=== PATIENT | male | born 1945 | race American Indian/Alaskan Native ===

== ENCOUNTER 2017-02-22 13:59 | Emergency (ER) | payer MEDICARE ==
--- NOTE | 2017-02-22 16:26 | Emergency Department Report ---
ED Fall HPI - General Chief Complaint: Fall Stated Complaint: BODY PAIN Time Seen by Provider: 02/22/17 15:28 Source: patient, EMS, RN notes reviewed Mode of arrival: Stretcher Limitations: No Limitations - History of Present Illness Initial Comments: 71-year-old male presents to the emergency department via EMS after reported fall from bed. Patient is bedbound at baseline. Reportedly, the patient was found lying on the floor. Patient states he did hit his head, but there was no loss of consciousness. Patient is complaining of generalized pain, which reportedly is his baseline. There are no other complaints. MD Complaint: fall -: Sudden, This morning Fall From: out of bed When Fall Occurred: unsure Fall Witnessed: no Place Fall Occurred: home Loss of Consciousness: none Prolonged Down Time?: no Symptoms Prior to Fall: none Severity: mild - Related Data Home Medications Medication Instructions Recorded Confirmed Last Taken Baclofen [Lioresal] 20 mg PO TID 12/16/13 11/05/14 11/05/14 Brimonidine Tartrate [Brimonidine 1 drop INTRAOCULA Q8HR 12/16/13 11/05/1411/05 Tartrate 0.2%] Calcium Carb & Citrate/Vit D3 2 tab PO DAILY 12/17/13 11/05/14 11/05/14 [Calcium + Vitamin D3 Caplet] Dorzolamide HCl [Dorzolamide HCl 1 drop INTRAOCULA TID 12/17/13 11/05/14 2%] Multivitamin [Multi-Vitamin Daily] 1 tab PO DAILY 12/17/13 11/05/14 11/05/14 Previous Rx's Medication Instructions Recorded Last Taken Type Albuterol Sulfate [Proventil HFA] 1 - 2 puff IH Q4H PRN #1 hfa.aer.ad 01/13/14 Unknown Rx Lactose-Reduced Food [Ensure 237 ml PO TID #90 liquid 09/21/14 11/05/14 Rx Original] Oxybutynin Chloride [Oxybutynin 2.5 mg PO BID #60 tab.er.24 09/21/14 11/05/14 Rx Chloride ER] Terazosin HCl 5 mg PO HS #30 tab-cap 09/21/14 11/05/14 Rx Allergies Allergy/AdvReac Type Severity Reaction Status Date / Time No Known Allergies Allergy Verified 12/16/13 03:24 ED Review of Systems ROS: Stated complaint: BODY PAIN Other details as noted in HPI Comment: All other systems reviewed and negative Musculoskeletal: as per HPI (generalized pain) ED Past Medical Hx - Past Medical History Previous Medical History?: Yes Hx Kidney Stones: Yes Hx HIV: No Additional medical history: Multiple sclerosis, decubitus ulcer - Surgical History Past Surgical History?: No - Family History Family history: no significant - Social History Smoking Status: Former Smoker Substance Use Type: None - Medications Home Medications: Home Medications Medication Instructions Recorded Confirmed Last Taken Type Baclofen [Lioresal] 20 mg PO TID 12/16/13 11/05/14 11/05/14 History Brimonidine Tartrate [Brimonidine 1 drop INTRAOCULA Q8HR 12/16/13 11/05/1411/05 History Tartrate 0.2%] Calcium Carb & Citrate/Vit D3 2 tab PO DAILY 12/17/13 11/05/14 11/05/14 History [Calcium + Vitamin D3 Caplet] Dorzolamide HCl [Dorzolamide HCl 1 drop INTRAOCULA TID 12/17/13 11/05/14 History 2%] Multivitamin [Multi-Vitamin Daily] 1 tab PO DAILY 12/17/13 11/05/14 11/05/14 History Albuterol Sulfate [Proventil HFA] 1 - 2 puff IH Q4H PRN #1 hfa.aer.ad 01/13/14 11/05/14 Unknown Rx Lactose-Reduced Food [Ensure 237 ml PO TID #90 liquid 09/21/14 11/05/14 Rx Original] Oxybutynin Chloride [Oxybutynin 2.5 mg PO BID #60 tab.er.24 09/21/14 11/05/14 Rx Chloride ER] Terazosin HCl 5 mg PO HS #30 tab-cap 09/21/14 11/05/14 11/05/14 Rx ED Physical Exam - General Limitations: No Limitations General appearance: alert, in no apparent distress - Head Head exam: Present: atraumatic, normocephalic - Eye Eye exam: Present: normal appearance, PERRL, EOMI - ENT ENT exam: Present: normal exam, normal orophraynx, mucous membranes moist - Neck Neck exam: Present: normal inspection, full ROM. Absent: tenderness - Respiratory Respiratory exam: Present: normal lung sounds bilaterally. Absent: respiratory distress - Cardiovascular Cardiovascular Exam: Present: regular rate, normal rhythm, normal heart sounds - GI/Abdominal GI/Abdominal exam: Present: soft, normal bowel sounds. Absent: distended, tenderness - Extremities Exam Extremities exam: Present: normal inspection, full ROM. Absent: tenderness - Back Exam Back exam: Present: normal inspection, full ROM. Absent: tenderness - Neurological Exam Neurological exam: Present: alert, oriented X3. Absent: motor sensory deficit - Skin Skin exam: Present: warm, dry, intact ED Course Vital Signs 02/22/17 02/22/17 02/22/17 14:09 14:10 14:11 Temperature 97.8 F Pulse Rate 99 H Respiratory 20 Rate Blood Pressure 98/62 Blood Pressure 98/62 [Right] O2 Sat by Pulse 100 99 99 Oximetry 02/22/17 02/22/17 02/22/17 14:20 14:30 14:40 Temperature Pulse Rate 98 H 97 H 99 H Respiratory 20 23 23 Rate Blood Pressure 98/62 98/62 98/62 Blood Pressure [Right] O2 Sat by Pulse 99 100 98 Oximetry 02/22/17 02/22/17 02/22/17 14:50 15:00 15:11 Temperature Pulse Rate 96 H 94 H Respiratory 17 15 18 Rate Blood Pressure 98/62 96/57 Blood Pressure [Right] O2 Sat by Pulse 98 99 Oximetry ED Medical Decision Making - Radiology Data Radiology results: image reviewed interpreted by me: CT of the brain shows no acute intracranial abnormality. - Medical Decision Making Imaging results reviewed and discussed with the patient. Results were also discussed with the patient's daughter over the phone. Patient will be discharged home at this time to follow up with his primary care physician. - Differential Diagnosis contusion, fracture, SDH Critical care attestation.: If time is entered above; I have spent that time in minutes in the direct care of this critically ill patient, excluding procedure time. ED Disposition Clinical Impression: Scalp contusion Qualifiers: Encounter type: initial encounter Qualified Code(s): S00.03XA - Contusion of scalp, initial encounter Disposition: DISCHARGED TO HOME OR SELFCARE Is pt being admited?: No Condition: Stable Instructions: Contusion in Adults (ED) Referrals: PRIMARY CARE, [Primary Care Provider] - 3-5 Days Time of Disposition: 17:52
--- NOTE | 2017-02-22 17:00 | Cat Scan Report ---
FINAL REPORT EXAM: CT HEAD/BRAIN WO CON HISTORY: fall from bed TECHNIQUE: CT of the Head without IV contrast. PRIORS: None currently available. FINDINGS: Decreased attenuation regions in the periventricular and subcortical white matter are nonspecific and may represent small vessel ischemic disease or a demyelinating process. Small vessel ischemic disease is more likely. Vascular calcifications noted. There is no evidence for acute ischemia. There is no hemorrhage. There is no midline shift. There is no hydrocephalus. There is no mass. Age appropriate owen-white matter attenuation is noted. There is no calvarial fracture. The temporal bones demonstrate aerated mastoid air cells. The middle ears appear unremarkable. Mild mucosal thickening in both ethmoid sinuses. Globes are intact. IMPRESSION: No acute intracranial findings. Chronic ischemic disease.
[2017-02-22 18:01] VITALS: BP 100/62
== END 2017-02-22 19:40 | disposition home or self-care (01) ==
LOC: ED 13:59
DX: S00.03XA Contusion of scalp, initial encounter (principal); G35 Multiple sclerosis; Z87.891 Personal history of nicotine dependence; W06.XXXA Fall from bed, initial encounter; Y93.89 Activity, other specified; Y99.8 Other external cause status; Y92.89 Other specified places as the place of occurrence of the external cause
CPT/HCPCS: 70450

== ENCOUNTER 2017-06-09 21:52 | Inpatient (IN) | payer MEDICARE ==
[2017-06-09] MEDS ORDERED: NACL 0.9% 1000 ML 1,000 ML ONE (22:13)
[2017-06-09] MEDS ORDERED: NACL 0.9% 1000 ML 1,000 ML IV ONE ×2 (22:19→23:31)
--- NOTE | 2017-06-09 23:16 | Emergency Department Report ---
HPI - General Chief Complaint: Altered Mental Status Time Seen by Provider: 06/09/17 22:13 - HPI HPI: Room 23 The patient is a 72-year-old male sent from long term for altered mental status. Family reports patient has been acting different and has had cloudy urine since yesterday. The patient is lethargic and does not respond verbally to questions. Patient is unable to provide a history. Patient presents hypotensive and tachycardic from EMS Location: [see above] Duration: [see above] Quality: "Different" Severity: Moderate Modifying factors: [see above] Context: [see above] Mode of transportation: [not driving] ED Past Medical Hx - Past Medical History Previous Medical History?: Yes Hx Kidney Stones: Yes Hx Dementia: Yes Additional medical history: Multiple sclerosis, decubitus ulcer - Surgical History Past Surgical History?: No - Family History Family history: no significant - Social History Smoking Status: Unknown if ever smoked Substance Use Type: None - Medications Home Medications: Home Medications Medication Instructions Recorded Confirmed Last Taken Type Baclofen [Lioresal] 20 mg PO TID 12/16/13 06/10/17 11/05/14 History Brimonidine Tartrate [Brimonidine 1 drop INTRAOCULA Q8HR 12/16/13 06/10/1711/05 History Tartrate 0.2%] Calcium Carb & Citrate/Vit D3 2 tab PO DAILY 12/17/13 06/10/17 11/05/14 History [Calcium + Vitamin D3 Caplet] Dorzolamide HCl [Dorzolamide HCl 1 drop INTRAOCULA TID 12/17/13 06/10/17 History 2%] Multivitamin [Multi-Vitamin Daily] 1 tab PO DAILY 12/17/13 06/10/17 11/05/14 History Albuterol Sulfate [Proventil HFA] 1 - 2 puff IH Q4H PRN #1 hfa.aer.ad 01/13/14 06/10/17 Unknown Rx Lactose-Reduced Food [Ensure 237 ml PO TID #90 liquid 09/21/14 06/10/17 Rx Original] Oxybutynin Chloride [Oxybutynin 2.5 mg PO BID #60 tab.er.24 12/11/14 08/30/17 01 /25/15 Rx Chloride ER] Terazosin HCl 5 mg PO HS #30 tab-cap 09/21/14 06/10/17 11/05/14 Rx Cephalexin [Keflex] 500 mg PO Q12HR #10 cap 04/13/17 06/10/17 Unknown Rx oxyCODONE /ACETAMINOPHEN [Percocet 1 tab PO Q6H PRN #30 tablet 04/13/17 Unknown Rx 5/325 mg] ED Review of Systems ROS: Stated complaint: AMS Other details as noted in HPI Comment: Unobtainable due to pts medical conditions Physical Exam - Physical Exam Vital Signs: Vital Signs 06/09/17 06/09/17 06/09/17 22:13 22:26 22:51 Temperature 99.8 F H Pulse Rate 156 H 157 H 136 H Respiratory 41 H 40 H 35 H Rate Blood Pressure 60/29 95/47 O2 Sat by Pulse 91 91 99 Oximetry Physical Exam: GENERAL: The patient is a adult male. Thin and cachectic on the stretcher. Patient is tachycardic and hypotensive and does not respond verbally HEENT: Normocephalic. Atraumatic. NECK: Trachea midline CHEST/LUNGS: Clear to auscultation. There is no respiratory distress noted. HEART/CARDIOVASCULAR: Regular. There is tachycardia. There is no gallop rub or murmur. ABDOMEN: Abdomen is soft, nontender. Patient has normal bowel sounds. There is no abdominal distention. SKIN: There is no diaphoresis. NEURO: The patient is lethargic. The patient is cooperative. MUSCULOSKELETAL: The patient appears to have contractures of bilateral lower extremities. There is no evidence of acute injury. ED Course Vital Signs 06/09/17 06/09/17 06/09/17 22:13 22:26 22:51 Temperature 99.8 F H Pulse Rate 156 H 157 H 136 H Respiratory 41 H 40 H 35 H Rate Blood Pressure 60/29 95/47 O2 Sat by Pulse 91 91 99 Oximetry ED Medical Decision Making - Lab Data Result diagrams: 06/09/17 23:40 06/09/17 23:40 Laboratory Tests 06/09/17 06/09/17 06/09/17 23:40 23:40 23:40 WBC 14.4 H RBC 3.53 L Hgb 9.1 L Hct 30.8 L MCV 87 MCH 26 L MCHC 30 L RDW 14.8 Plt Count 539 H Lymph % (Auto) 7.0 L Arroyo % (Auto) 5.7 Eos % (Auto) 0.0 Baso % (Auto) 0.1 Lymph # 1.0 L Arroyo # 0.8 Eos # 0.0 Baso # 0.0 Seg Neutrophils % 87.2 H Seg Neutrophils # 12.5 H PT 16.5 H INR 1.34 H APTT 36.1 Sodium 144 Potassium 5.1 H Chloride 101.7 Carbon Dioxide 23 Anion Gap 24 BUN 35 H Creatinine 1.5 Estimated GFR 56 BUN/Creatinine Ratio 23.33 Glucose 136 H Lactic Acid Calcium 9.9 Total Bilirubin 0.40 AST 19 ALT 13 Alkaline Phosphatase 90 Total Creatine Kinase 62 CK-MB (CK-2) 3.1 CK-MB (CK-2) Rel Index 5.0 H Troponin T 0.195 H* Total Protein 7.9 Albumin 2.2 L Albumin/Globulin Ratio 0.4 TSH Free T4 Urine Color Urine Turbidity Urine pH Ur Specific Watson Urine Protein Urine Glucose (UA) Urine Ketones Urine Blood Urine Nitrite Urine Bilirubin Urine Urobilinogen Ur Leukocyte Esterase Urine WBC (Auto) Urine RBC (Auto) U Epithel Cells (Auto) Urine Bacteria (Auto) Urine WBC Clumps Urine Mucus 06/09/17 06/09/17 06/10/17 23:40 23:40 01:24 WBC RBC Hgb Hct MCV MCH MCHC RDW Plt Count Lymph % (Auto) Arroyo % (Auto) Eos % (Auto) Baso % (Auto) Lymph # Arroyo # Eos # Baso # Seg Neutrophils % Seg Neutrophils # PT INR APTT Sodium Potassium Chloride Carbon Dioxide Anion Gap BUN Creatinine Estimated GFR BUN/Creatinine Ratio Glucose Lactic Acid 5.30 H* Calcium Total Bilirubin AST ALT Alkaline Phosphatase Total Creatine Kinase CK-MB (CK-2) CK-MB (CK-2) Rel Index Troponin T Total Protein Albumin Albumin/Globulin Ratio TSH 7.060 H Free T4 1.29 Urine Color Radha Urine Turbidity Cloudy Urine pH 6.0 Ur Specific Watson 1.017 Urine Protein 100 mg/dl Urine Glucose (UA) Neg Urine Ketones Neg Urine Blood Mod Urine Nitrite Neg Urine Bilirubin Neg Urine Urobilinogen 2.0 Ur Leukocyte Esterase Lg Urine WBC (Auto) 93.0 H Urine RBC (Auto) 4.0 U Epithel Cells (Auto) < 1.0 Urine Bacteria (Auto) 3+ Urine WBC Clumps 2+ Urine Mucus 2+ - EKG Data -: EKG Interpreted by Me EKG shows normal: sinus rhythm Rate: tachycardia (156 bpm) - EKG Data When compared to previous EKG there are: changes noted Interpretation: nonspecific ST-T wave cuco - Radiology Data Radiology results: report reviewed (CT head, CT chest), image reviewed (CT head , CT chest, chest x-ray) interpreted by me: Chest [id number] line in place. No pneumothorax, no focal infiltrates CT head (read by radiologist) (-no evidence of acute intracranial process CT chest (rubber radiologist)-no evidence of pulmonary arterial emboli. COPD with mild fibrosis. Scattered infiltrates bilateral lower lungs. Mild atelectasis bilateral lower lungs. Fluid-filled distended esophagus in the thorax. Tapering of the esophageal lumen in the distal thorax is suspected. The patient should have further workup for achalasia - Differential Diagnosis sepsis, UTI, pneumonia Critical Care Time: Yes Critical care time in (mins) excluding proc time.: 30 Critical care attestation.: If time is entered above; I have spent that time in minutes in the direct care of this critically ill patient, excluding procedure time. ED Disposition Clinical Impression: Urinary tract infection, Leukocytosis, Sepsis, Pneumonia Disposition: DC-[id number] OP ADMIT IP TO THIS HOSP Is pt being admited?: Yes Does the pt Need Aspirin: Yes Condition: Serious Instructions: Bacterial Pneumonia (ED) Referrals: PRIMARY CARE, [Primary Care Provider] - 3-5 Days Time of Disposition: 03:36 (hospitalist notified) Blank Doc - Documentation Documentation: Central line note Consent was unobtainable Location: Right internal jugular The site was prepped and draped in a sterile fashion Site was anesthetized with lidocaine 1% approximately 3 mL Landmarks identified and needle introduced until return of dark nonpulsatile blood Blood was obtained on second attempt Guidewire introduced using Seldinger technique and triple lumen catheter placed over guidewire There was blood return from all 3 ports Catheter was secured to patient by suture The patient tolerated procedure well The post procedure x-ray was ordered There were no complications
[2017-06-10 00:24] LABS: Basophils % (Auto) 0.1 % (0.0-1.8); Mean Corpuscular HGB Conc 30 % (32-34); Mean Corpuscular Volume 87 fl (84-94); Platelet Count 539 K/mm3 (140-440); Red Blood Count 3.53 M/mm3 (3.65-5.03); Red Cell Distribution Width 14.8 % (13.2-15.2); White Blood Count 14.4 K/mm3 (4.5-11.0)
[2017-06-10 00:34] LABS: Hematocrit 30.8 % (35.5-45.6); Hemoglobin 9.1 gm/dl (11.8-15.2); INR 1.34 (0.87-1.13); Mean Corpuscular Hemoglobin 26 pg (28-32); Partial Thromboplastin Time 36.1 Sec. (24.2-36.6)
[2017-06-10 00:35] LABS: Creatine Kinase MB 3.1 ng/mL (0.0-4.0)
[2017-06-10 00:39] LABS: Albumin 2.2 g/dL (3.9-5); Albumin/Globulin Ratio 0.4 %; BUN/Creatinine Ratio 23.33; Bilirubin,Total 0.4 mg/dL (0.1-1.2); Calcium 9.9 mg/dL (8.4-10.2); Chloride 101.7 mmol/L (98-107); Potassium 5.1 mmol/L (3.6-5.0); Total Protein 7.9 g/dL (6.3-8.2)
[2017-06-10] MEDS ORDERED: NACL 0.9% 1000 ML 1,000 ML IV ONE (00:39)
[2017-06-10 01:43] LABS: Bacteria,Urine 3+ /HPF (Negative); Bilirubin,Urine NEG (Negative); Blood,Urine MOD (Negative); Ketones,Urine NEG (Negative); Leukocyte Esterase,Urine LG (Negative); Mucus,Urine 2+ /HPF; Nitrite,Urine NEG (Negative)
[2017-06-10] MEDS: LEVAQUIN 750MG/150ML 750 MG/150 ML BAG IV ONE ×2 (02:30→03:00)
[2017-06-10] MEDS ORDERED: NACL ONE (02:37)
--- NOTE | 2017-06-10 03:27 | Cat Scan Report ---
FINAL REPORT PROCEDURE: CT HEAD/BRAIN WO CON TECHNIQUE: Computerized tomography of the head was performed without contrast material. HISTORY: altered mental status COMPARISON: 02/22/2017 FINDINGS: Skull and scalp: Normal. Paranasal sinuses: Normal. Ventricles and subarachnoid spaces: Normal. Cerebrum: There is no evidence of an acute intracranial hemorrhage, hematoma, infarction, midline displacement or mass. Significant atrophy and periventricular deep white matter changes are noted.. Cerebellum and brainstem: No evidence of hemorrhage, acute infarction or mass. Vasculature: Normal. Comments: None. IMPRESSION: There is no evidence of an acute intracranial process. Significant atrophy and periventricular deep white matter changes are noted.
--- NOTE | 2017-06-10 03:37 | Cat Scan Report ---
FINAL REPORT PROCEDURE: CT ANGIO CHEST TECHNIQUE: Computerized tomographic angiography of the chest was performed after the IV injection of iodinated nonionic contrast including image processing. The image data was postprocessed using 2-dimensional multiplanar reformatted (MPR) and 3-dimensional (MIP and/or volume rendered) techniques. HISTORY: hypoxia, tachycardia COMPARISON: 01/13/2014 FINDINGS: Heart and pericardium: Normal. Thoracic aorta: Normal. Pulmonary vasculature: Normal. Lymph nodes: No enlarged thoracic lymph nodes. Lungs: Chronic obstructive pulmonary changes are identified. Underlying fibrosis is noted. Scattered infiltrates in the lower lungs are noted. Mild atelectasis bilateral lower lungs. The central airway appears patent.. Pleural space: No effusion, thickening, or pneumothorax. Musculoskeletal structures: No significant abnormality. Upper abdominal structures: There is significant distention of the esophagus. Fluid in the esophagus is identified up to the thoracic inlet. Tapering of the lumen caliber of the distal thoracic aorta is noted. The patient should have further workup for achalasia.. IMPRESSION: No evidence of pulmonary arterial emboli. COPD with mild fibrosis. Scattered infiltrates bilateral lower lungs. Mild atelectasis bilateral lower lungs. Fluid-filled distended esophagus in the thorax. Tapering of the esophageal lumen in the distal thorax is suspected. The patient should have further workup for achalasia.
--- NOTE | 2017-06-10 04:44 | Admit Criteria Form ---
Admission Criteria Documentation: PNEUMONIA, COMMUNITY ACQUIRED Clinical Indications for Admission to Inpatient Care (Place ' X' for any and all applicable criteria): Admission to inpatient status for two midnights or more is indicated for ANY ONE of the following (1)(2)(3): [ ]I. Hypoxia [ ]II. Hemodynamic instability [ ]III. Altered mental status that is severe or persistent [ ]IV. Dehydration that is severe or persistent. [ ]V. Bacteremia [ ]. Moderate-risk or high-risk category patients (Pneumonia Severity Index ( PSI) class IV or V, or CURB-65 score of 3 or greater). [ ]VII. Intermediate-risk category patients (e.g., PSI class III or CURB-65 score 2) who do not improve with outpatient and observation care treatment [ ]VIII. Outpatient treatment failure as indicated by 1 or more of the following(9): [ ]a) Failure to respond to antibiotic (eg, resistant organism) [ ]b) Clinically significant adverse effects from medication (eg, vomiting) [ ]c) Complications of pneumonia (eg, empyema, bacteremia) [ ]d) Significant worsening of comorbid cond necessitating inpatient care (eg, chronic heart failure) [ X]IX. Appropriate diagnostic testing and treatment unavailable in outpatient or recovery facility (eg, testing or infection control measures unavailable) [ ]X. Respiratory finding (eg. tachypnea) that do not respond to outpatient observation care treatment [ ]XI. Complicated pleural effusions (eg, emphysema, exudative, loculated) [ ]XII. Immunocompromised patients (e.g., AIDS, chronic steroid use) at moderate or high risk based on clinical evaluation. Extended stay beyond goal length of stay may be needed for (20) [ ]a) Unclear diagnosis [ ]b) Pleural disease [ ]c) Severe pneumonia or treatment failure [ ]d) Respiratory failure [ ]e) New onset hyponatremia (serum Na concentration less than 135 mEq/L(mmol/ L) [ ]f) Clinically significant comorbid illness (eg, heart failure, atrial fibrillation with rapid heart rate, alcohol withdrawal, renal insufficiency)(34)(35) [ ]g) Comorbid acute exacerbation of COPD(36) [ ]h) Concomitant diagnosis of malignancy [ ]i) Concomitant altered mental status [ ]j) Culture-identified Gram-negative or antibiotic-resistant organism (eg, Pseudomonas, methicillin-resistant Staphylococcus aureus MRSA)(30) [ ]k) Healthcare-associated pneumonia (36) The original [facility] [employer] content created by [facility] has been revised. The portions of the content which have been revised are identified through the use of italic text or in bold, and [facility] has neither reviewed nor approved the modified material. All other unmodified content is copyright [facility]. Please see references footnoted in the original [facility] edition 2016 Admission Criteria Met: Yes
[2017-06-10] MEDS ORDERED: TYLENOL PO PRN (04:46)
[2017-06-10] MEDS ORDERED: ZOFRAN IV PRN (04:46)
[2017-06-10] MEDS ORDERED: LEVOPHED DRIP 4 MG/NS 250 ML 4 MG/250 ML BAG IV ONE ×2 (04:51→08:15)
[2017-06-10] MEDS ORDERED: NACL 0.9% 1000 ML 1,000 ML IV SCH (05:00)
[2017-06-10] MEDS ORDERED: TYLENOL PR PRN (05:08)
[2017-06-10] MEDS: LEVOPHED DRIP 4 MG/NS 250 ML 4 MG/250 ML BAG IV SCH ×4 (05:15→15:00)
[2017-06-10] MEDS ORDERED: ZOSYN/NS 3.375GM/50ML 50 ML IV SCH (06:00)
[2017-06-10] MEDS ORDERED: NACL 0.9% 1000 ML 1,000 ML ONE (06:30)
[2017-06-10] MEDS: ZOSYN/NS 2.25 GM/50ML 2.25 GM/50 ML BAG IV SCH ×2 (06:50→12:30)
--- NOTE | 2017-06-10 07:41 | History and Physical Report ---
CHIEF COMPLAINT: Change in mental status. HISTORY OF PRESENT ILLNESS: The patient is a 72-year-old male brought from the snf because of altered mental status. Family noted that the patient has been acting differently and strange, and also they said that they noticed that the urine was cloudy since yesterday. The patient according to the family was noted to be lethargic and does not respond well to questions. The patient is unable to provide information. There was no history of fever or chills. No history of chest pain and there is no history of nausea or vomiting; however, the EMS reported rapid heartbeat. PAST MEDICAL HISTORY: Pertinent for dementia, multiple sclerosis, decubitus ulcer, and kidney stones. PAST SURGICAL HISTORY: Unremarkable. FAMILY HISTORY: Noncontributory. SOCIAL HISTORY: The patient stays at a snf, does not drink, does not smoke and does not use illicit drugs. MEDICATIONS: The patient is on baclofen 20 mg by mouth twice daily, brimonidine tartrate one drop intraocular every 8 hours, calcium carbonate and calcium citrate/vitamin D two tablets by mouth daily, dorzolamide 1 drop intraocular 3 times daily, multivitamin 1 tablet by mouth daily, albuterol sulfate, Proventil 1-2 puffs by inhalation every 4 hours as needed for shortness of breath. The patient is also on lactose reduced food with Ensure Original 237 mL by mouth 3 times daily, oxybutynin 2.5 mg by mouth twice daily, terazosin 5 mg by mouth at bedtime, cephalexin or Keflex 500 mg by mouth twice daily, and Percocet 5/325 mg 1 by mouth every 6 hours. ALLERGIES: There are no known drug allergies. REVIEW OF SYSTEMS: CONSTITUTIONAL: There is no fever, no chills, no diaphoresis. HEENT: There is no headache or sore throat. CARDIOVASCULAR SYSTEM: There is no chest pain or orthopnea. RESPIRATORY SYSTEM: There is no shortness of breath or cough. GASTROINTESTINAL SYSTEM: There is no nausea, no vomiting, no abdominal pain, diarrhea or constipation. NEUROLOGICAL SYSTEM: There is no numbness. No dizziness. Altered mental status present. MUSCULOSKELETAL SYSTEM: There is no joint pain or swelling. DERMATOLOGICAL SYSTEM: There is no skin rash. The patient is known to have decubitus ulcer. GENITOURINARY SYSTEM: There is no dysuria, hematuria, or flank pain. The patient's urine was reported by the family as being dark yellow. Rest of system review is normal. PHYSICAL EXAMINATION: GENERAL: At the time of exam, the patient was found to be alert, confused and not in acute distress. VITAL SIGNS: Show temperature of 98.3 degrees Fahrenheit, pulse of 127, respirations 26, blood pressure 114/67, O2 sat of 96% on room air. HEENT: Exam shows pupils to be equal, round, reactive to light and accommodation. Extraocular muscles are intact. NECK: Supple with no JVD or carotid bruit. CARDIOVASCULAR SYSTEM: Shows first and second heart sounds with a rapid rate, but no gallops or murmurs. RESPIRATORY SYSTEM: Shows good air entry on both sides of the lung with no abnormal breath sounds. GASTROINTESTINAL SYSTEM: Shows abdomen to be full, soft, nontender with no organomegaly or rigidity. NEUROLOGIC: Neuro exam shows no focal deficit. MUSCULOSKELETAL SYSTEM: Shows no joint swelling or tenderness. DERMATOLOGICAL SYSTEM: Shows different areas of decubitus ulcer of back area. GENITOURINARY SYSTEM: Shows no costovertebral angle tenderness. PERTINENT LABORATORY DATA AND IMAGING STUDIES: The patient had a CT angiogram of the chest done that shows no pulmonary embolism; however, there is finding of COPD with mild fibrosis. There is also a finding of scattered infiltrates bilaterally in the lower lungs and there is finding of fluid-filled distended esophagus in the thorax, which is noted to have tapered in the distal thorax and there is suspicion of possible achalasia. Also the patient had a CT of the head without contrast done that shows no evidence of acute intracranial process. There is significant atrophy and periventricular deep white matter changes. The patient's lab results shows elevated white count of 14,400 with low hemoglobin of 9.1, low hematocrit of 30.8 with normal MCV, platelet level was slightly elevated with a value of 539. CBC differential shows elevated segmented neutrophils of 87.2% with no significant bands. The patient coagulations studies show a slightly elevated INR of 1.34 with high PT of 16.8, and the patient is not on Coumadin. The patient's chemistry shows normal sodium with slightly elevated potassium level of 5.1 with normal level being 3.6-5.0. The patient's lactic acid level is high with a value of 5.3. The patient's cardiac enzyme shows normal total CPK, normal CK-MB with elevated percentage index of 5.0, high troponin level of 0.195, albumin level is low with a value of 2.2. The patient's TSH level is high with a value of 7.0 and free T4 is normal suggestive of subclinical hypothyroidism. The patient's urinalysis show high urine WBC of 93 with large leukocyte esterase and negative nitrate. DIAGNOSES: 1. Sepsis. 2. Urinary tract infection. 3. Altered mental status. 4. Tachycardia. 5. Elevated troponin level. PLAN: The patient will be admitted to ICU because of low blood pressure and Levophed that was just titrated. The patient will have cardiac enzymes checked every 6 hours x 2 more levels. The patient will continue on IV Levophed to keep mean arterial blood pressure at 65. The patient will remain n.p.o. until swallow studies and will be on IV Zosyn 3.375 g every 6 hours. The patient will also be on IV normal saline at 125 mL an hour and will be on IV Zofran 4 mg every 8 hours as needed for nausea and vomiting. The patient will be on Tylenol 650 mg rectally every 4 hours for fever and headache. The patient will have a consult with critical care doctor, Dr. Ramirez for ICU admission. DVT prophylaxis will be through heparin 5000 units subcutaneous every 12 hours. The patient's home medications will be reconciled and applied. JOB# [id number] OCN/NTS
[2017-06-10 08:13] LABS: ISTAT Base Excess -7; ISTAT HCO3 18.8; ISTAT PCO2 37.8 (35-45); ISTAT PH 7.306 (7.35-7.45); ISTAT PO2 74 (80-105); ISTAT SO2 93; ISTAT TCO2 20
[2017-06-10] MEDS ORDERED: HEPARIN SUB-Q SCH (10:00)
[2017-06-10 10:02] LABS: Creatine Kinase MB 9.6 ng/mL (0.0-4.0)
--- NOTE | 2017-06-10 10:54 | Admit Criteria Form ---
Admission Criteria Documentation: SEVERE SEPSIS Clinical Indications for Admission to Inpatient Care (Place 'X' for any and all applicable criteria): Hospital admission is needed for appropriate care of the patient because of ANY ONE of the following: [X]I. Hemodynamic instability indicated by ANY ONE of the following(1)(2)(3)( 4)(5): [X]a. Vital sign abnormality not readily corrected by appropriate treatment within 12 to 24 hours indicated by ANY ONE of the following: []i) Tachycardia that persists despite appropriate treatment [X]ii) Hypotension that persists despite appropriate treatment []iii) Orthostatic vital sign changes that persist despite appropriate treatment [X]b. Vital sign abnormality that is severe indicated by ANY ONE of the following: [X]i. Inadequate perfusion indicated by ANY ONE of the following: [X]1) Lactic acidosis (greater than 2 mmol/L) []2) New abnormal capillary refill (greater than 3 seconds) []3) Reduced urine output []4) New altered mental status []5) Myocardial Ischemia []ii. Mean arterial pressure [A] less than 60 mm Hg []iii. Mean arterial pressure[A] less than 70 mm Hg after 30 minutes of appropriate treatment (eg, fluid resuscitation) []iv. Sustained heart rate greater than 120 beats per minute in adult []v. IV inotropic or vasopressor medication required to maintain adequate blood pressure or perfusion [X]II. Systemic or infectious condition causing severe symptoms or findings not responsive to emergency or observation care treatment (as appropriate) indicated by ANY ONE of the following: []a. Cardiac arrhythmias of immediate concern(1)(2)(3) []b. Severe endocrine disorder (eg, thyrotoxicosis, adrenal insufficiency)(4)(5) []c. Seizures (eg, new or recurrent)(6) []d. New-onset end organ failure or dysfunction as indicated by ANY ONE of the following: []i. Acute unexplained hypoxemia (eg, not from lung infection or chronic disease)(7)(8)(9) []ii. Acute renal failure as indicated by new onset of ANY ONE of the following(10)(11)(12)(13)(14): []1) 3-fold rise in serum creatinine from baseline []2) Serum creatinine greater than 4 mg/dL (354 micromoles/L) with acute rise greater than 0.5 mg/dL (44.2 micromoles/L) []3) Reduction of more than 75% in estimated glomerular filtration rate from baseline. []4) Estimated glomerular filtration rate less than 35 mL/min/1.73m2 ( 0.59 mL/sec/1.73m2) in child younger than 18 years. []5) Cessation of urine output indicated by ALL of the following: []A. Adequate volume status []B. Inadequate urine output as indicated by ANY ONE of the following: []a. Urine output less than 0.3 mL/kg/hr for 24 hours []b. Anuria (urine output less than 0.1 mL/kg/hr) for 12 hours []iii. Acute mental status changes(15) []iv. Acute hepatic failure (eg, plasma bilirubin greater than 4 mg/ dL (68 micromoles/L), new INR greater than 2.0)(16)(17) []e. Unmanageable nausea and vomiting(18) []f. New-onset or uncontrolled central diabetes insipidus(19)(20) []g. Clinically significant dehydration(18)(21) []h. Hypoglycemia(22) [X]i. Acidosis (pH less than 7.35) or alkalosis (pH greater than 7.45)( 22)(23) []j. Toxic drug level that indicates need for specific monitoring or treatment(24)(25) []k. Severe electrolyte abnormalities indicated by ALL of the following( 1)(2)(3): []i. Electrolytes and associated findings are not as expected for patient baseline or acceptable treatment effects. []ii. Severe abnormalities indicated by ANY ONE of the following: []1) Sodium less than 130 mEq/L (mmol/L) (new) []2) Sodium less than 135 mEq/L (mmol/L) with ANY ONE of the following: []A. Uncorrectable (to near normal or chronic baseline) after trial of outpatient and emergency treatment []B. Altered mental status []C. Seizures []D. Severe medical etiology requiring inpatient management (eg , heart failure, hypovolemia) []3) Sodium greater than 155 mEq/L (mmol/L) []4) Sodium greater than 150 mEq/L (mmol/L) with ANY ONE of the following: []A. Uncorrectable (to near normal or chronic baseline) with outpatient and emergency treatment []B. Altered mental status []C. Seizures []D. Severe medical etiology (eg, hypovolemia, diabetes insipidus) []5) Potassium less than 2.5 mEq/L (mmol/L) despite outpatient and emergency treatment []6) Potassium less than 3 mEq/L (mmol/L) with ANY ONE of the following : []A. Weakness []B. Cardiac abnormality (eg, arrhythmia, conduction disturbance ) []C. Cardiac ischemia []D. Ileus []E. Ongoing medical cause requiring inpatient management (eg, acute renal wasting or SIADH) []F. Other severe symptoms []7) Potassium greater than 6.5 mEq/L (mmol/L) []8) Potassium greater than 5 mEq/L (mmol/L) with ANY ONE of the following: []A. Uncorrectable (to near normal or chronic baseline) with outpatient and emergency treatment []B. Severe ECG findings[A] []C. Acute worsening of renal failure (creatinine greater than 2.5 mg/dL (221 micromoles/L) or significant elevation for age and size) []D. Severe weakness []E. Severe medical etiology (eg, hemolysis, infection, drug overdose) []9) Calcium less than 7 mg/dL (1.75 mmol/L) despite outpatient and emergency treatment(5) []10) Calcium less than 8 mg/dL (2 mmol/L) with significant symptoms or findings (eg, altered mental status, muscle spasms, seizures, breathing difficulty, cardiac abnormality (eg, arrhythmia or conduction disturbance))(5) []11) Calcium greater than 14 mg/dL (3.5 mmol/L)(5) []12) Calcium greater than 12 mg/dL (3 mmol/L) with ANY ONE of the following(5): []A. Uncorrectable (to near normal or chronic baseline) with outpatient and emergency treatment []B. Significant dehydration or hypovolemia as indicated by ALL of the following(3)(6)(7): []a. Not resolved with initial treatments []b. Clinically significant dehydration as indicated by ANY ONE of the following: [](1) Vomiting refractory to outpatient treatment (ie, precluding oral rehydration) [](2) Inability to drink [](3) Hypernatremia or other electrolyte abnormality unable to be corrected with outpatient and emergency treatment [](4) Failure to remain hydrated with outpatient therapy [](5) Reduced urine output [](6) Hypotension [](7) Serious cause for dehydration requiring acute hospitalization ( eg, bowel obstruction, increased intracranial pressure, infectious cause) [](8) Child with ANY ONE of the following(8): [](i) Severe abdominal tenderness [](ii) Adequate care not available at home [](iii) Severe dehydration (greater than 9% loss of body weight) []C. Significant symptoms or findings (eg, altered mental status , cardiac abnormality (eg, arrhythmia, conduction disturbance), malignant etiology requiring inpatient treatment) []13) Phosphorus less than 1 mg/dL (0.32 mmol/L) []14) Phosphorus less than 1.5 mg/dL (0.48 mmol/L) with ANY ONE of the following: []A. Patient unresponsive to outpatient and emergency treatment []B. Significant symptoms or findings (eg, weakness, altered mental status, breathing difficulty, seizures, rhabdomyolysis) []15) Phosphorus greater than 10 mg/dL (3.2 mmol/L) []16) Phosphorus greater than 4.5 mg/dL (1.45 mmol/L) (new) with ANY ONE of the following: []A. Severe medical etiology (eg, crush injury, acute renal failure) []B. Associated hypocalcemia with significant findings (eg, neurologic symptoms, altered mental status, muscle spasms, seizures, breathing difficulty, cardiac abnormality (eg, arrhythmia, conduction disturbance)) []16) Magnesium less than 1 mg/dL (0.41 mmol/L) []17) Magnesium less than 1.5 mg/dL (0.62 mmol/L) with ANY ONE of the following: []A. Patient unresponsive to outpatient and emergency treatment []B. Associated hypocalcemia with significant findings (eg, altered mental status, muscle spasms, seizures, breathing difficulty, cardiac abnormality (eg, arrhythmia, conduction disturbance)) []C. Associated hypokalemia (potassium less than 3 mEq/L (mmol/L )) with risk of arrhythmia []18) Magnesium greater than 4 mEq/L (2 mmol/L) []19) Magnesium greater than 2.5 mEq/L (1.25 mmol/L) with significant symptoms or findings (eg, weakness, altered mental status, cardiac abnormality (eg, arrhythmia, conduction disturbance), breathing difficulty, severe medical etiology (eg, renal failure, hypovolemia)) []20) Uric acid greater than 20 mg/dL (1190 micromoles/L)(9) []21) Uric acid greater than 8 mg/dL (476 micromoles/L) with significant symptoms or findings of tumor lysis syndrome (eg, creatinine greater than 1.5 times upper limit of normal, cardiac abnormality (eg , arrhythmia, conduction disturbance), seizure)(9) []III. High fever or other high-risk infection situation as indicated by ANY ONE of the following(26)(27)(28): []a. Outpatient and observation care antimicrobial treatment unavailable, not effective, or not appropriate []b. Documented bacteremia []c. Temperature greater than 104.9 degrees F (40.5 degrees C) (oral) []d. Temperature greater than 103.1 degrees F (39.5 degrees C) (oral) or less than 96.8 degrees F (36 degrees C) (rectal) that does not respond to emergency treatment and observation care []IV. High-risk febrile neutropenia[A] as indicated by ANY ONE of the following(29)(30)(31)(32): []a. Profound neutropenia[B] anticipated to extend for more than 7 days []b. Hemodynamic instability []c. Hypoxemia []d. Tachypnea []e. Altered mental status []f. New-onset abdominal pain []g. New-onset vomiting or diarrhea []h. Oral or gastrointestinal mucositis that interferes with swallowing or causes severe diarrhea []i. Focal infection (eg, cellulitis, pneumonia, central line or catheter infection, perirectal abscess) []j. Renal insufficiency (eg, GFR of less than 30 mL/min/1.73m2 (0.5 mL/sec /1.73m2)). []k. Severe liver dysfunction (transaminase levels greater than 5 times normal) []l. Platelet count less than 50,000/mm3 (50 x109/L)(33) []m. Leukemia or lymphoma induction therapy []n. Leukemia not in complete remission or with evidence of disease progression []o. Bone marrow transplant patient []p. Alemtuzumab being used for therapy []q. [employer] Association for Supportive Care in Cancer (MASCC) Risk Index score of less than 21[C](33)(35). []V. Isolation required (eg, tuberculosis that requires isolation, Ebola infection)[D](36)(37)(38)(39)(40) []. Gangrene that requires treatment beyond emergency or observation level care(41)(42) []VII. Antitoxin administration and ongoing observation required (eg, tetanus, botulism)(43)(44) []. Suspected infection with rapid progression or severe symptoms as indicated by ANY ONE of the following(45): []a. Streptococcal or staphylococcal toxic shock(46) []b. Diphtheria(47) []c. Hantavirus(48) []d. Severe acute respiratory syndrome(8)(49) []e. Anthrax(50) []f. Ebola[D](36)(37)(38) []g. Necrotizing soft tissue infection(41)(42) []h. Plague(50) []i. Other suspected infection that requires care beyond emergency or observation level care []VII. Severe adverse drug or systemic toxin reaction as indicated by ANY ONE of the following(24): []a. Serotonin syndrome(51)(52) []b. Neuroleptic malignant syndrome(51)(52) []c. Cholinergic syndrome with severe symptoms (eg, bronchorrhea, weakness , mental status changes, seizures)(53) []d. Anticholinergic syndrome []e. Sympathetic syndrome with severe symptoms (eg, seizures, mental status changes, cardiac dysrhythmias) []f. Other severe adverse drug or systemic toxin reaction that remains after emergency or observation level care (as appropriate) []VIII. Allergic reaction with severe symptoms (not responsive to emergency or observation care treatment as appropriate), including ANY ONE of the following(54): []a. Airway edema (pharyngeal, epiglottic, or laryngeal edema) []b. Stridor []c. Respiratory failure []d. Bronchospasm []e. Hypotension []IX. Environmental emergency (not responsive to emergency or observation care treatment as appropriate) as indicated by ANY ONE of the following(55)(56): []a. Hyperthermia []b. Heat stroke []c. Heat exhaustion []d. Hypothermia (temperature less than 95 degrees F (35 degrees C) rectal) (57) []e. Electrocution(58) []X. Complications of transplanted organ (ie, not covered elsewhere)[E] indicated by ANY ONE of the following(59): []a. Acute graft rejection (or graft vs. host disease)[F] requiring inpatient management (eg, intravenous immunosuppression)(60)(61)(62)( 63) []b. Acute failure of transplanted organ necessitating inpatient care (eg, cannot be managed in other setting) []c. Infection requiring inpatient management (eg, Hemodynamic instability, need for intravenous antimicrobial treatment)(64)(65) []d. Other complication of transplanted organ requiring inpatient management []XI. Systemic or Infectious Condition condition, symptom, or finding for which emergency and observation care have failed or are not considered appropriate. See General Criteria: Observation Care, General Admission Criteria or Pediatric General Admission Criteria guideline as appropriate. (Contents from SEVERE SEPSIS and SYSTEMIC OR INFECTIOUS CONDITION clinical indications for admission to inpatient care have been integrated in this form) The original [facility] content created by [facility] has been revised. The portions of the content which have been revised are identified through the use of italic text or in bold and [facility] has neither reviewed nor approved the modified material. All other unmodified content is copyright [facility]. Please see references footnoted in the original [facility] edition 2016 Admission Criteria Met: Yes
[2017-06-10] MEDS ORDERED: INTROPIN DRIP 800 MG/D5W 250 ML 800 MG/250 ML BAG IV SCH (11:00)
[2017-06-10] MEDS ORDERED: INTROPIN DRIP 800 MG/D5W 250 ML 800 MG/250 ML BAG IV ONE (11:01)
--- NOTE | 2017-06-10 13:10 | Progress Note ---
Hospitalist Physical - Constitutional Vitals: Temp Pulse Resp BP Pulse Ox 97.7 F 146 H 15 90/43 100 06/10/17 08:07 06/10/17 12:00 06/10/17 12:00 06/10/17 12:00 06/10/17 12:00 Results - Labs CBC & Chem 7: 06/09/17 23:40 06/09/17 23:40 Labs: Laboratory Last Values WBC 14.4 K/mm3 (4.5-11.0) H 06/09/17 23:40 RBC 3.53 M/mm3 (3.65-5.03) L 06/09/17 23:40 Hgb 9.1 gm/dl (11.8-15.2) L 06/09/17 23:40 Hct 30.8 % (35.5-45.6) L 06/09/17 23:40 MCV 87 fl (84-94) 06/09/17 23:40 MCH 26 pg (28-32) L 06/09/17 23:40 MCHC 30 % (32-34) L 06/09/17 23:40 RDW 14.8 % (13.2-15.2) 06/09/17 23:40 Plt Count 539 K/mm3 (140-440) H 06/09/17 23:40 Lymph % (Auto) 7.0 % (13.4-35.0) L 06/09/17 23:40 [place] % (Auto) 5.7 % (0.0-7.3) 06/09/17 23:40 Eos % (Auto) 0.0 % (0.0-4.3) 06/09/17 23:40 Baso % (Auto) 0.1 % (0.0-1.8) 06/09/17 23:40 Lymph # 1.0 K/mm3 (1.2-5.4) L 06/09/17 23:40 [place] # 0.8 K/mm3 (0.0-0.8) 06/09/17 23:40 Eos # 0.0 K/mm3 (0.0-0.4) 06/09/17 23:40 Baso # 0.0 K/mm3 (0.0-0.1) 06/09/17 23:40 Seg Neutrophils % 87.2 % (40.0-70.0) H 06/09/17 23:40 Seg Neutrophils # 12.5 K/mm3 (1.8-7.7) H 06/09/17 23:40 PT 16.5 Sec. (12.2-14.9) H 06/09/17 23:40 INR 1.34 (0.87-1.13) H 06/09/17 23:40 APTT 36.1 Sec. (24.2-36.6) 06/09/17 23:40 POC ABG pH 7.306 (7.35-7.45) L 06/10/17 08:11 POC ABG pCO2 37.8 (35-45) 06/10/17 08:11 POC ABG pO2 74 (80-105) L 06/10/17 08:11 POC ABG HCO3 18.8 06/10/17 08:11 POC ABG Total CO2 20 06/10/17 08:11 POC ABG O2 Sat 93 06/10/17 08:11 POC ABG Base Excess -7 06/10/17 08:11 FiO2 98 % 06/10/17 08:11 Sodium 144 mmol/L (137-145) 06/09/17 23:40 Potassium 5.1 mmol/L (3.6-5.0) H 06/09/17 23:40 Chloride 101.7 mmol/L (98-107) 06/09/17 23:40 Carbon Dioxide 23 mmol/L (22-30) 06/09/17 23:40 Anion Gap 24 mmol/L 06/09/17 23:40 BUN 35 mg/dL (9-20) H 06/09/17 23:40 Creatinine 1.5 mg/dL (0.8-1.5) 06/09/17 23:40 Estimated GFR 56 ml/min 06/09/17 23:40 BUN/Creatinine Ratio 23.33 % 06/09/17 23:40 Glucose 136 mg/dL (75-100) H 06/09/17 23:40 Lactic Acid 5.30 mmol/L (0.7-2.0) H* 06/09/17 23:40 Calcium 9.9 mg/dL (8.4-10.2) 06/09/17 23:40 Total Bilirubin 0.40 mg/dL (0.1-1.2) 06/09/17 23:40 AST 19 units/L (5-40) 06/09/17 23:40 ALT 13 units/L (7-56) 06/09/17 23:40 Alkaline Phosphatase 90 units/L (35-129) 06/09/17 23:40 Total Creatine Kinase 185 units/L (55-170) H 06/10/17 09:15 CK-MB (CK-2) 9.6 ng/mL (0.0-4.0) H 06/10/17 09:15 CK-MB (CK-2) Rel Index 5.1 (0-4) H 06/10/17 09:15 Troponin T 0.206 ng/mL (0.00-0.029) H* 06/10/17 09:15 Total Protein 7.9 g/dL (6.3-8.2) 06/09/17 23:40 Albumin 2.2 g/dL (3.9-5) L 06/09/17 23:40 Albumin/Globulin Ratio 0.4 % 06/09/17 23:40 Triglycerides 53 mg/dL (2-149) 06/09/17 23:40 Cholesterol 75 mg/dL (50-199) 06/09/17 23:40 LDL Cholesterol Direct 28 mg/dL (50-130) L 06/09/17 23:40 HDL Cholesterol 37 mg/dL (40-59) L 06/09/17 23:40 Cholesterol/HDL Ratio 2.02 % 06/09/17 23:40 TSH 7.060 mlU/mL (0.270-4.200) H 06/09/17 23:40 Free T4 1.29 ng/dL (0.76-1.46) 06/09/17 23:40 Urine Color Radha (Yellow) 06/10/17 01:24 Urine Turbidity Cloudy (Clear) 06/10/17 01:24 Urine pH 6.0 (5.0-7.0) 06/10/17 01:24 Ur Specific [place] 1.017 (1.003-1.030) 06/10/17 01:24 Urine Protein 100 mg/dl mg/dL (Negative) 06/10/17 01:24 Urine Glucose (UA) Neg mg/dL (Negative) 06/10/17 01:24 Urine Ketones Neg mg/dL (Negative) 06/10/17 01:24 Urine Blood Mod (Negative) 06/10/17 01:24 Urine Nitrite Neg (Negative) 06/10/17 01:24 Urine Bilirubin Neg (Negative) 06/10/17 01:24 Urine Urobilinogen 2.0 mg/dL (<2.0) 06/10/17 01:24 Ur Leukocyte Esterase Lg (Negative) 06/10/17 01:24 Urine WBC (Auto) 93.0 /HPF (0.0-6.0) H 06/10/17 01:24 Urine RBC (Auto) 4.0 /HPF (0.0-6.0) 06/10/17 01:24 U Epithel Cells (Auto) < 1.0 /HPF (0-13.0) 06/10/17 01:24 Urine Bacteria (Auto) 3+ /HPF (Negative) 06/10/17 01:24 Urine WBC Clumps 2+ /HPF 06/10/17 01:24 Urine Mucus 2+ /HPF 06/10/17 01:24
[2017-06-10] MEDS ORDERED: XANAX PO PRN (13:54)
--- NOTE | 2017-06-10 13:59 | Consultation ---
History of Present Illness Consult date: 06/10/17 Requesting physician: JORY HARRIS Consult reason: elevated troponin History of present illness: Pt is a 72 YO frail male with a past medical history significant for multiple sclerosis and decubitus ulcer. He is previously unknown to our practice. Pt is confused, lethargic and nonverbal on examination and thus HPI is obtained per pt's daughter at bedside. Per pt's daughter (pt lives with daughter and she is his primary caregiver), pt developed sudden onset confusion, "regurgitation", and "cold hands" yesterday. Per pt's daughter , pt is typically ambulatory and A&O. Following arrival to ED, pt was found to be tachycardia and hypotensive with lactic acid of 5.3; WBC 14.4; H/H 9.1/30.8; INR 1.34; K 5.1; Cr 1.5. Head CT showed NAF. Chest CTA showed COPD changes with scattered infiltrates in the lower lungs, mild bilateral atelectasis, no evidence of PE. Urine culture positive for UTI. Also, pt's troponins were noted to be elevated (0.195 -> 0.206) and thus cardiology has been consulted. 12-lead EKG shows sinus tachycardia, HR 148bpm, with nonspecific ST changes. Pt's daughter denies any prior cardiac history or cardiac complaints from pt. Past History Past Medical History: other (MS) Past Surgical History: No surgical history Social history: lives with family. denies: smoking, alcohol abuse, prescription drug abuse Medications and Allergies Allergies Allergy/AdvReac Type Severity Reaction Status Date / Time No Known Allergies Allergy Verified 12/16/13 03:24 Home Medications Medication Instructions Recorded Confirmed Last Taken Type Baclofen [Lioresal] 20 mg PO TID 12/16/13 06/10/17 11/05/14 History Brimonidine Tartrate [Brimonidine 1 drop INTRAOCULA Q8HR 12/16/13 06/10/1711/05 History Tartrate 0.2%] Calcium Carb & Citrate/Vit D3 2 tab PO DAILY 12/17/13 06/10/17 11/05/14 History [Calcium + Vitamin D3 Caplet] Dorzolamide HCl [Dorzolamide HCl 1 drop INTRAOCULA TID 12/17/13 06/10/17 History 2%] Multivitamin [Multi-Vitamin Daily] 1 tab PO DAILY 12/17/13 06/10/17 11/05/14 History Albuterol Sulfate [Proventil HFA] 1 - 2 puff IH Q4H PRN #1 hfa.aer.ad 01/13/14 06/10/17 Unknown Rx Lactose-Reduced Food [Ensure 237 ml PO TID #90 liquid 09/21/14 06/10/17 Rx Original] Oxybutynin Chloride [Oxybutynin 2.5 mg PO BID #60 tab.er.24 09/21/14 06/10/17 Rx Chloride ER] Terazosin HCl 5 mg PO HS #30 tab-cap 09/21/14 06/10/17 11/05/14 Rx Cephalexin [Keflex] 500 mg PO Q12HR #10 cap 04/13/17 06/10/17 Unknown Rx oxyCODONE /ACETAMINOPHEN [Percocet 1 tab PO Q6H PRN #30 tablet 04/13/17 Unknown Rx 5/325 mg] Active Meds: Active Medications Acetaminophen (Tylenol) 650 mg VA Q4H PRN PRN Reason: For Pain/Fever/Headache Alprazolam (Xanax) 0.5 mg PO Q8H PRN PRN Reason: Anxiety Heparin Sodium (Porcine) (Heparin) 5,000 unit SUB-Q Q12HR SHER Last Admin: 06/10/17 10:17 Dose: 5,000 unit Sodium Chloride (Nacl 0.9% 1000 Ml) 1,000 mls @ 125 mls/hr IV DIRECT SHER Last Admin: 06/10/17 07:58 Dose: 125 mls/hr Piperacillin Sod/Tazobactam Sod (Zosyn/Ns 2.25 Gm/50ml) 2.25 gm in 50 mls @ 100 mls/hr IV Q6HR SHER Last Admin: 06/10/17 12:30 Dose: 100 mls/hr Norepinephrine (Levophed Drip 4 Mg/Ns 250 Ml) 4 mg in 250 mls @ 15 mls/hr IV TITR SHER; 4 MCG/MIN PRN Reason: Protocol Last Admin: 06/10/17 11:30 Dose: 30 mcg/min, 112.5 mls/hr Dopamine HCl/Dextrose (Intropin Drip 800 Mg/D5w 250 Ml) 800 mg in 250 mls @ 1.446 mls/hr IV TITR SHER; 2 MCG/KG/MIN PRN Reason: Protocol Last Admin: 06/10/17 11:15 Dose: 6.91 mcg/kg/min, 5 mls/hr Sodium Chloride (Nacl 0.9% 500 Ml) 500 mls @ 999 mls/hr IV ONCE ONE Stop: 06/10/17 14:25 Ondansetron HCl (Zofran) 4 mg IV Q8H PRN PRN Reason: Nausea And Vomiting Review of Systems ROS unobtainable: due to mental status Physical Examination Vital Signs Temp Pulse Resp BP Pulse Ox 99.8 F H 156 H 41 H 60/29 91 06/09/17 22:13 06/09/17 22:13 06/09/17 22:13 06/09/17 22:13 06/09/17 22:13 General appearance: cachectic, other (lethargic, confused ) HEENT: Positive: PERRL Neck: Positive: neck supple, trachea midline Cardiac: Positive: S1/S2, Tachycardia Lungs: Positive: Decreased Breath Sounds Neuro: Positive: Other (lethargic, confused) Skin: Negative: Rash Musculoskeletal: No Fluid Collection, No Pain, Normal Range of Motion Extremities: Absent: edema Results 06/09/17 23:40 06/09/17 23:40 Cardiac Enzymes 06/10/17 Range/Units 09:15 CK-MB (CK-2) 9.6 H (0.0-4.0) ng/mL - Imaging and Cardiology Echo: pending EKG: image reviewed EKG interpretations - Telemetry EKG Rhythm: Sinus Tachycardia - EKG Sinus rhythms and dysrhythmias: sinus tachycardia Repolarization changes or abnormalities: nonspecific abnormality, ST segment, and/or T wave Assessment and Plan Assessment: ? PNA / UTI / sepsis / lactic acidosis - BCx's pending; empiric ABX per primary. AMS - head CT with NAF Sinus tachycardia - physiologic in setting of sepsis, hypotension and vasopressor support. Hypotension - requiring multiple vasopressors. NSTEMI type II - ECG with no acute ischemic changes; troponins flat. Acute respiratory failure - requiring NRB Anemia Hyperkalemia H/o multiple sclerosis Decubitus ulcer Plan: Suspect elevated troponins are due to supply-demand mismatch, which is likely secondary to sepsis, hypotension, tachycardia, anemia. Cont to trend April. Continue SQ heparin for DVT prophylaxis. Do not recommend DAPT and/or heparin gtt at this time as coronary thrombosis is not suspected. Obtain echocardiogram. Repeat BMP and Mg in AM. Repeat EKG in AM. Tx to ICU. Cont present supportive measures - per pt's daughter, to maintain full code status. Assessment and plan reviewed with pt's daughter at bedside. The patient has been seen in conjunction with Dr. Jade who agrees with the assessment and plan of care.
[2017-06-10] MEDS ORDERED: CARDIZEM/D5W 100MG/100ML 100 MG/100 ML BAG IV SCH (14:00)
[2017-06-10] MEDS ORDERED: NACL 0.9% 500 ML 500 ML IV SCH (14:00)
[2017-06-10 14:46] VITALS: BP 103/51
[2017-06-10] MEDS ORDERED: NEO-SYNEPHRINE 100 MG in NACL 0.9% 90 ML IV SCH (15:00)
[2017-06-10 15:47] LABS: Creatine Kinase MB 22.7 ng/mL (0.0-4.0)
--- NOTE | 2017-06-10 16:17 | Death Summary ---
Summary - Providers Date of service: 06/10/17 Consults: 06/10/17 04:52 Consult to Physician [CONS] Routine Consulting Provider: PADILLA CORLEY Reason For Exam: ICU ADMISSION ON LEVOPHED FOR HYPOTENSION Place consult to:: PADILLA CORLEY Notified:: Y If yes, spoke with:: DR CORLEY Time called:: 09:00 06/10/17 13:03 Consult to Physician [CONS] Routine Consulting Provider: ALBERT MIRAMONTES Reason For Exam: positive CE/afib RVR Place consult to:: cardiology Notified:: y Was contact made?: Yes If yes, spoke with:: STEFAN COTTRELL Time called:: 13:25 Attending: JORY HARRIS - summary Date of admission: 06/10/17 04:21 Date of : 06/10/17 (04:14 pm)
[2017-06-10] MEDS ORDERED: AMIDATE IV ONE ×2 (17:05→18:54)
[2017-06-10] MEDS ORDERED: QUELICIN IV ONE (17:05)
--- NOTE | 2017-06-10 17:12 | Emergency Department Report ---
Naima Doc - Documentation Documentation: I was requested by Dr. Rivera, the hospitalist, to intubate an admitted patient. 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 Family rescinded this and requested mechanical ventilation. Patient is on maximum pressors still hypotensive. He had agonal respirations on my arrival and was being bagged by nursing and respiratory staff. The patient was intubated using RSI protocol. Unfortunately he immediately vomited after succinylcholine was given. Nonetheless he was suctioned out and promptly intubated without difficulty. 7.5 endotracheal tube was placed with good color change and bilateral breath sounds. After intubation the patient developed a bradycardic rhythm. was at the bedside. I did personally give the patient epinephrine and atropine and bicarbonate through his right internal jugular line. This was ineffective in improving his tachycardia despite good oxygenation. I did briefly speak to the family member at the bedside. I told her my opinion CPR would be futile in this setting but we will proceed with that if she so desired. The family member who I presume was a daughter or granddaughter tells me that she did not want CPR and that she wanted resuscitation discontinued. She also communicated this with other family members by telephone several nursing staff was present. At the same time the patient went into asystole. Therefore, further resuscitative efforts were discontinued and the patient was pronounced at 1614. was aware and present. Procedure Endotracheal intubation CPR
[2017-06-10] MEDS ORDERED: QUELICIN ONE (18:54)
[2017-06-10] MEDS ORDERED: SODIUM BICARBONATE IV ONE (18:56)
[2017-06-10] MEDS ORDERED: ATROPINE 0.1% (CARDIAC) ONE (18:56)
[2017-06-10] MEDS ORDERED: ADRENALIN ONE (18:56)
== END 2017-06-10 19:00 | DRG 871 ==
LOC: ED 21:52 → 4A 06-10 04:21 → CC1 06-10 05:19
PROVIDERS: ADMIT Internal Medicine; ATTEND Internal Medicine
PROC: 5A12012 Performance of Cardiac Output, Single, Manual (ICD-10-PCS; principal; 2017-06-10)
PROC: 0BH17EZ Insertion of Endotracheal Airway into Trachea, Via Natural or Artificial Opening (ICD-10-PCS; 2017-06-10)
DX: A41.9 Sepsis, unspecified organism (principal); J18.9 Pneumonia, unspecified organism; J96.00 Acute respiratory failure, unspecified whether with hypoxia or hypercapnia; I21.4 Non-ST elevation (NSTEMI) myocardial infarction; N39.0 Urinary tract infection, site not specified; E87.2 Acidosis; F03.90 Unspecified dementia, unspecified severity, without behavioral disturbance, psychotic disturbance, mood disturbance, and anxiety; G35 Multiple sclerosis; D64.9 Anemia, unspecified; E87.5 Hyperkalemia; L89.90 Pressure ulcer of unspecified site, unspecified stage; Z87.442 Personal history of urinary calculi; Z79.899 Other long term (current) drug therapy
CPT/HCPCS: 36415; 36600; 70450; 71010; 71275; 80053; 80061; 81001; 82140; 82550; 82553; 82803; 84439; 84443; 84484; 85025; 85610; 85730; 87040; 87086; 93005; 93010; 96361; 96365; 99291; J0171; J0330; J0461; J1265; J1644; J1956; J2370; J2543; J7030; Q9967